=== PATIENT | female | born 2000 | race African-American/Black ===

== ENCOUNTER 2018-09-11 23:05 | Emergency (ER) | payer OTHER ==
[2018-09-11 23:11] VITALS: BP 129/65; PULSE 81; TEMP 97.8; BMI 28.3
--- NOTE | 2018-09-12 00:25 | PDOC ---
History of Present Illness - General Chief Complaint: Injury Stated Complaint: ANKLE PAIN Time Seen by Provider: 09/12/18 00:06 History Source: Patient Exam Limitations: No Limitations - History of Present Illness Initial Comments: 09/12/18 00:22 HISTORY OF PRESENT ILLNESS: 18-year-old woman denies medical history of presents emergency department for evaluation of atraumatic right foot pain which started today. 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 She denies dropping anything on his, merchandise or other trauma to her foot. Patient reports the pain started approximately 1:30 this afternoon and did not come to the emergency department until she had a ride to bring her here. Patient has taken Aleve prior to arrival which has helped with her pain. Pain reports her pain was 6/10 at its maximum is currently 3/2 and describes as a dull ache. No recent travel or sick contacts. PAST MEDICAL HISTORY: Denies past medical history SURGICAL HISTORY: Denies ALLERGIES: No known drug allergies REVIEW OF SYSTEMS General/Constitutional: Denies fever or chills. Denies weakness, weight change. HEENT: Denies change in vision. Denies ear pain or discharge. Denies sore throat. Cardiovascular: Denies chest pain or shortness of breath. Respiratory: Denies cough, wheezing, or hemoptysis. Gastrointestinal: Denies nausea, vomiting, diarrhea or constipation. Denies rectal bleeding. Genitourinary: Denies dysuria, frequency, or change in urination. Musculoskeletal:see HPI Skin and breasts: Denies rash or easy bruising. Neurologic: Denies headache, vertigo, loss of consciousness, or loss of sensation. Psychiatric: Denies depression or anxiety. Endocrine: Denies increased thirst. Denies abnormal weight change. Hematologic/Lymphatic: Denies anemia, easy bleeding, or history of blood clots. Allergic/Immunologic: Denies hives or skin allergy. Denies latex allergy. PHYSICAL EXAM General Appearance: Well-appearing, appropriately dressed. No apparent distress , no intoxication. Respiratory/Chest: Lungs CTAB. No shortness of breath, chest tenderness, respiratory distress, accessory muscle use. No crackles, rales, rhonchi, stridor , wheezing, dullness Cardiovascular: RRR. S1, S2. No JVD, murmur, bradycardia, tachycardia. Vascular Pulses: Dorsalis-Pedis (R): 2+, Dorsalis-Pedis (L): 2+ Musculoskeletal/Extremities: Ecchymosis present to the dorsum of the right mid foot over the third fourth and fifth metatarsal. No bony tenderness, crepitus or step offs present. Full active range of motion to the right ankle and right foot. Neurovascular intact. Capillary refill less than 2 seconds. 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 Fully oriented, alert. Appropriate mood/affect. Motor strength 5/5. No appreciable EOM palsy, facial droop or sensory deficit. Past History - Suicide/Smoking/Psychosocial Hx Smoking History: Unknown if ever smoked Information on smoking cessation initiated: No Hx Alcohol Use: No Drug/Substance Use Hx: No *Physical Exam - Vital Signs Last Vital Signs Temp Pulse Resp BP Pulse Ox 97.8 F 81 20 129/65 99 09/11/18 23:08 09/11/18 23:08 09/11/18 23:08 09/11/18 23:08 09/11/18 23:08 Medical Decision Making - Medical Decision Making 09/12/18 00:21 A/P: 18-year-old woman with atraumatic right foot pain starting today Ecchymosis noted to the dorsum of the right foot over the mid foot third fourth and fifth metatarsals No bony tenderness or deformity present upon palpation of the bones of the ankle and right foot. Full active range of motion to right ankle and foot Neurovascular intact Patient with contusion of the dorsum of the right foot Discharge home with instructions for RICE. *DC/Admit/Observation/Transfer Diagnosis at time of Disposition: Contusion of right foot, initial encounter - Discharge Dispostion Disposition: HOME Condition at time of disposition: Stable Decision to Admit order: No - Referrals Referrals: Rosaline Capps MD [Primary Care Provider] - - Patient Instructions Additional Instructions: Apply ice to foot for 20 minutes at a time. Remove ice for 20 minutes before reapplying. Take Tylenol or Aleve for pain as directed by manufacturers instructions. Rest. Return to emergency department for any new or worsening symptoms. Thank you very much for treasonous provider emergent health care needs. - Post Discharge Activity Forms/Work/School Notes: Back to Work
== END 2018-09-12 00:27 | disposition home or self-care (01) ==
LOC: JER 23:05
DX: S90.31XA Contusion of right foot, initial encounter (principal); X58.XXXA Exposure to other specified factors, initial encounter; Y93.9 Activity, unspecified; Y92.89 Other specified places as the place of occurrence of the external cause; Y99.8 Other external cause status
CPT/HCPCS: 99283-25

== ENCOUNTER 2022-05-30 14:55 | Emergency (ER) | payer OTHER ==
[2022-05-30 15:03] VITALS: BP 119/78; PULSE 99; RESP 18; TEMP 98.4; BMI 30.9
[2022-05-30] MEDS ORDERED: IBUPROFEN 600 MG TABLET (FP) PO ONE ×2 (15:56→15:59)
== END 2022-05-30 16:57 | disposition home or self-care (01) ==
LOC: JERFT 14:55 → JER 14:55 → JERFT 16:57
DX: M79.672 Pain in left foot (principal)
CPT/HCPCS: 73610-TC-LT-FY; 73630-TC-LT; 99283-25